=== PATIENT | female | born 1950 | race Caucasian/White ===

== ENCOUNTER 2023-07-14 08:26 | Emergency (ER) | payer OTHER ==
[~2023-07-14] VITALS: Ht 160 cm; Wt 103.7 kg
[2023-07-14 10:04] VITALS: BP 169/86; PULSE 113; TEMP 98.8
[2023-07-14 10:36] LABS: Rapid Strep A Screen-Throat Negative
[2023-07-14] MEDS ORDERED: AZITTAB PO (10:57)
[2023-07-14] MEDS ORDERED: ALBUAER3 IN (10:57)
[2023-07-14] MEDS ORDERED: BENZ200C64 PO (10:57)
[2023-07-14] MEDS ORDERED: PRED20TA2 PO (10:58)
[2023-07-14] MEDS ORDERED: DEXT1LOZ10 MT (10:58)
[2023-07-14] MEDS: DexAMETHasone 4 MG TAB PO ONE (11:07)
[2023-07-14 12:00] VITALS: RESP 18; O2SAT 96
[2023-07-14] MEDS: ALBUTEROL SULF 2.5 MG/0.5ML(0.5%) NEB SOLN NEB ONE (12:00)
[2023-07-14] MEDS: IPRATROPIUM BROM 0.5 MG/2.5ML INH SOL NEB ONE (12:00)
== END 2023-07-14 12:01 | disposition home or self-care (01) ==
LOC: ER 08:26
DX: J20.9 Acute bronchitis, unspecified (principal); J02.9 Acute pharyngitis, unspecified; E11.9 Type 2 diabetes mellitus without complications; E78.5 Hyperlipidemia, unspecified; I10 Essential (primary) hypertension; M54.2 Cervicalgia
CPT/HCPCS: 70490; 82962; 87070; 87880; 94640; 99284; J7644; J8540